=== PATIENT | male | born 1990 | race Caucasian/White ===

== ENCOUNTER 2019-02-13 13:49 | Emergency (ER) | payer BC, OTHER ==
[2019-02-13] MEDS ORDERED: Ketorolac 60 MG/2 ML SDV IM ONE (14:23)
[2019-02-13] MEDS ORDERED: Diphtheria/Tetanus Toxoids,Adult (Td) 0.5 ML SDV IM ONE (15:03)
--- NOTE | 2019-02-13 15:09 | EDM.PDOC ---
ED HPI GENERAL MEDICAL PROBLEM - General Chief Complaint: Lower Extremity Injury/Pain Stated Complaint: ANKLE PAIN Time Seen by Provider: 02/13/19 14:15 Source of Information: Reports: Patient History Limitations: Reports: No Limitations - History of Present Illness INITIAL COMMENTS - FREE TEXT/NARRATIVE: patient presents to the emergency room after a fall off a stool at home which he was standing on to reach up to finish some work on his house. he landed hard on his right ankle and had immediate pain, and there is a scrape along the side of his foot. He denies any other injury but states his ankle hurts very bad. He has no history of previous injury to this ankle but didn't break the other one before in a fall. He denies hitting his head, touching himself with either of his hands and causing pain in his wrist or arms. He has significant swelling over his ankle but no numbness or tingling in his foot. He has not been able to bear weight on it. there is an area along the lateral side of his foot where the skin is scraped off but no deeper injury and wound does not appear contaminated. 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 He is also a single father of 3 small children. He does not know when his last tetanus shot was. No other health problems or concerns right ankle Pain Score (Numeric/FACES): 9 - Related Data Allergies Allergy/AdvReac Type Severity Reaction Status Date / Time Sulfa (Sulfonamide Allergy Cannot Verified 02/13/19 13:55 Antibiotics) Remember Home Meds: Home Meds Cephalexin [Keflex] 500 mg PO BID 3 Days #6 capsule 02/13/19 [Rx] Diethylpropion HCl [Diethylpropion HCl ER] 75 mg PO DAILY 02/13/19 [History] FLUoxetine HCl [Fluoxetine HCl] 40 mg PO DAILY 02/13/19 [History] buPROPion [buPROPion XL] 300 mg PO DAILY 02/13/19 [History] Past Medical History - Past Health History Medical/Surgical History: Denies Medical/Surgical History Social & Family History - Family History Family Medical History: Noncontributory Review of Systems - Review of Systems Review Of Systems: ROS reveals no pertinent complaints other than HPI. ED EXAM, GENERAL - Physical Exam Exam: See Below Free Text/Narrative:: Gen.: Alert, anxious affect, nontoxic. Isolated injury to right lower extremity- -head and hands atraumatic, no other abrasions noted. No pain or tenderness with pressure on the upper tib-fib or signs of high ankle sprain. The ankle itself is significantly swollen and tender over the lateral malleolus and ATF ligament. The medial side is minimally swollen and does not seem tender. There is no tenderness anywhere else in the foot except for over the lateral fifth metatarsal where he has significant abrasion skin has been taken off over approximately 4 cm in length. He is able to wiggle his toes without difficulty and move his ankle but with some pain. Resisted motions not tested. Unable to determine ligamentous laxity secondary to pain. Course - Vital Signs Text/Narrative:: fall - no head injury - limited to right foot, abrasion and ankle injury wound cleaned by nursing, xrays ordered Last Recorded V/S: Last Vital Signs Temp 36.8 C 02/13/19 13:50 Pulse 81 02/13/19 13:50 Resp 16 02/13/19 13:50 BP 146/77 H 02/13/19 13:50 Pulse Ox 99 02/13/19 13:50 - Orders/Labs/Meds Orders: Active Orders 24 hr Category Date Time Status Vaccines to be Administered [RC] PER UNIT ROUTINE Care 02/13/19 15:04 Ordered Ankle Min 3V Rt [CR] Stat Exams 02/13/19 13:56 Taken Diphtheria/Tetanus Tox,Adult [Tenivac] Med 02/13/19 15:03 Once 0.5 ml IM .ONCE ONE Meds: Medications Discontinued Medications Generic Name Dose Route Start Last Admin Trade Name Mya PRN Reason Stop Dose Admin Ketorolac Tromethamine 60 mg 02/13/19 14:23 02/13/19 14:30 Toradol IM 02/13/19 14:24 60 mg ONETIME ONE Administration - Re-Assessments/Exams Free Text/Narrative Re-Assessment/Exam: 02/13/19 xrays reviewed, no obvious fracture, will have radiology overread patient pain improved following toradol shot needs updated TD. Prophylaxis given due to extent of foot wound Plan - wound dressed, boot and crutches provided, note for work, ok to return on Tuesday with restriction of NWB. F/u early next week Departure - Departure Time of Disposition: 15:04 Disposition: Home, Self-Care 01 Condition: Good Clinical Impression: Right ankle sprain, Foot abrasion, non-infected - Discharge Information *PRESCRIPTION DRUG MONITORING PROGRAM REVIEWED*: Not Applicable *COPY OF PRESCRIPTION DRUG MONITORING REPORT IN PATIENT KAYLA: Not Applicable Prescriptions: Cephalexin [Keflex] 500 mg PO BID 3 Days #6 capsule Instructions: Ankle Sprain, Abrasion Referrals: Yisel Disla, ASSISTANT TO THE DIRECTOR [Primary Care Provider] - Additional Instructions: followup with PCP early next week. May also return to walk-in clinic here if unable to get in use boot for comfort and crutches to keep weight off ankle until followup. If boot is uncomfortable due to swelling may use nathan wrap first couple days otherwise activity as tolerated, with regular breaks during day to elevate and put ice on ankle may take ibuprofen 600-800mg (3-4 tabs) every 6 hrs, drink lots of water with this ok to take Tylenol per dosing recommended on bottle change dressing on side of foot tomorrow night. OK to do every 24 hours as long as kept clean. Can apply bacitracin ointment or petroleum to keep bandage from sticking to wound, with nonstick gauze over top and clean sock. watch for signs of infection --increasing pain, redness, swelling, purulent ( white, green, cloudy) discharge or red streaking up leg may return to work Tuesday, no weight bearing on injured ankle 3 days antibiotics sent in to help prevent infection tetanus updated today - My Orders Last 24 Hours: My Active Orders 02/13/19 13:56 Ankle Min 3V Rt [CR] Stat 02/13/19 15:03 Diphtheria/Tetanus Tox,Adult [Tenivac] 0.5 ml IM .ONCE ONE 02/13/19 15:04 Vaccines to be Administered [RC] PER UNIT ROUTINE - Assessment/Plan Last 24 Hours: My Active Orders 02/13/19 13:56 Ankle Min 3V Rt [CR] Stat 02/13/19 15:03 Diphtheria/Tetanus Tox,Adult [Tenivac] 0.5 ml IM .ONCE ONE 02/13/19 15:04 Vaccines to be Administered [RC] PER UNIT ROUTINE
== END 2019-02-13 15:43 | disposition home or self-care (01) ==
LOC: FB.ED 13:49
DX: S93.401A Sprain of unspecified ligament of right ankle, initial encounter (principal); S90.811A Abrasion, right foot, initial encounter; Z88.2 Allergy status to sulfonamides; Z79.899 Other long term (current) drug therapy; Z23 Encounter for immunization; W08.XXXA Fall from other furniture, initial encounter; Y92.009 Unspecified place in unspecified non-institutional (private) residence as the place of occurrence of the external cause
CPT/HCPCS: 73610; 90471; 90714; 99283; J1885

== ENCOUNTER 2021-10-29 20:01 | Emergency (ER) | payer OTHER ==
[2021-10-29] MEDS ORDERED: Lidocaine 1% 20 ML MDV INFILT ONE (20:02)
== END 2021-10-29 20:50 | disposition home or self-care (01) ==
LOC: FB.ED 20:01
DX: S61.012A Laceration without foreign body of left thumb without damage to nail, initial encounter (principal); Z88.2 Allergy status to sulfonamides; W26.8XXA Contact with other sharp object(s), not elsewhere classified, initial encounter
CPT/HCPCS: 12002; 99281; 99282-25

== ENCOUNTER 2022-09-26 21:36 | Emergency (ER) | payer OTHER | END 2022-09-26 23:11 | disposition home or self-care (01) | LOC: FB.ED 21:36 | DX: L76.22 Postprocedural hemorrhage of skin and subcutaneous tissue following other procedure (principal); Z79.899 Other long term (current) drug therapy; Z88.2 Allergy status to sulfonamides | CPT/HCPCS: 99282 ==